=== PATIENT | male | born 1965 | race African-American/Black ===

== ENCOUNTER 2016-08-02 01:26 | Emergency (ER) | payer OTHER ==
[~2016-08-02] VITALS: Ht 182.9 cm; Wt 104.3 kg
[2016-08-02 01:26] VITALS: BP 151/98; PULSE 102; RESP 14; TEMP 98.4; O2SAT 100
== END 2016-08-02 01:50 ==
LOC: SED 01:26
DX: Z02.89 Encounter for other administrative examinations (principal)
CPT/HCPCS: 99283